=== PATIENT | female | born 1960 | race Caucasian/White ===

== ENCOUNTER 2017-01-28 19:30 | Emergency (ER) | payer BC ==
[~2017-01-28 19:30] MED LIST: AMOXICILLIN500 M PO; AUGMENTIN 875-11 TAB PO; CALCIUM; CALCIUM500 MG PO; CARAFATE1 G/10 ML PO; CHOLEST OFF450 MG; NORCO 5/325 TAB1 TAB PO; PRILOSEC20 MG PO; PROTONIX20 MG; PROTONIX40 MG PO; TRACE MINERALS; TRACE MINERALS PO; TURMERIC500 M1 PO; VIBRAMYCIN100 MG; VITAMIN D-1000 UNIT/ GT; VITAMIN D400 UNI5 PO; [UNRECOGNIZED DRUG - OTHER]; [UNRECOGNIZED DRUG - OTHER]; [UNRECOGNIZED DRUG - OTHER]; [UNRECOGNIZED DRUG - OTHER] PO; [UNRECOGNIZED DRUG - OTHER] PO
[2017-01-28] MEDS ORDERED: VITAMIN D31000 UNI3 PO (20:02)
[2017-01-28] MEDS ORDERED: DAILY VITE1 EACH PO (20:02)
[2017-01-28] MEDS ORDERED: ASPIRIN EC81 MG PO (20:02)
[2017-01-28] MEDS ORDERED: IBUPROFEN200 M2 PO (20:03)
[2017-01-28] MEDS ORDERED: TYLENOL EXTRA500 M1 PO (20:03)
[2017-01-28] MEDS ORDERED: IRON325 M2 PO (20:03)
[2017-01-28] MEDS ORDERED: WELCHOL625 M1 PO (20:03)
[2017-01-28] MEDS ORDERED: GLUCOPHAGE500 M3 (20:04)
[2017-01-28 20:23] LABS: BASO % 0.3 % (0-2); EOS % 2.2 % (0-7); EOSINOPHIL ABSOLUTE COUNT 0.2 tho/cmm (0.0-0.7); HCT-HEMATOCRIT 38.8 % (34.0-49.0); HGB-HEMOGLOBIN 12.9 gm/dl (12.0-15.5); IMMATURE GRANULOCYTES ABSOLUTE 0.02 tho/cmm (0-0.03); IMMATURE GRANULOCYTES PERCENT 0.2 % (0-0.3); LYMPH % 21.5 % (20-45); MCH (MEAN CORPUSCULAR HGB) 28.2 pg (28.0-32.0); MCHC MEAN CORPUSCULAR HGB CONC 33.2 % (32.0-36.0); MCV (MEAN CELL VOLUME) 84.9 fl (82.0-96.0); MEAN PLATELET VOLUME 9.5 cmc (9.4-12.4); MONO % 7.7 % (0-12); MONOCYTE ABSOLUTE COUNT 0.7 tho/cmm (0.0-1.2); NEUTROPHIL ABSOLUTE COUNT 6.5 tho/cmm (1.6-8.0); NEUTROPHIL-AUTOMATED 6.5 tho/cmm (1.6-8.0); NEUTROPHILS % 68.1 % (40-80); PLATELET COUNT 308 tho/cmm (150-450); RED BLOOD COUNT 4.57 mil/cmm (4.00-5.20); RED CELL DISTRIBUTION WIDTH 13.1 % (12.4-16.4); WHITE BLOOD COUNT 9.5 tho/cmm (4.0-10.0)
[2017-01-28 20:31] LABS: ANION GAP 12 mmol/L (0-20); BLOOD UREA NITROGEN 13 mg/dl (6-24); CALCIUM 9.1 mg/dl (8.5-10.5); CARBON DIOXIDE-VENOUS 26 mmol/L (22-32); CHLORIDE 104 mmol/l (96-110); CREATININE 0.69 mg/dl (0.50-1.10); GLUCOSE 137 mg/dL (70-110); POTASSIUM 3.5 mmol/L (3.7-5.1); SODIUM 138 mmol/L (135-145); eGFR VALUE FOR BLACK >90 mL/Min
== END 2017-01-28 21:50 ==
LOC: EDMED 19:30
PROVIDERS: Emergency Medicine
DX: N39.0 Urinary tract infection, site not specified (principal); I25.10 Atherosclerotic heart disease of native coronary artery without angina pectoris; J45.909 Unspecified asthma, uncomplicated; Z90.49 Acquired absence of other specified parts of digestive tract; Z98.890 Other specified postprocedural states; Z79.82 Long term (current) use of aspirin; Z79.899 Other long term (current) drug therapy
CPT/HCPCS: J7030; Q9967